=== PATIENT | male | born 1990 | race Caucasian/White ===

== ENCOUNTER 2017-08-31 02:16 | Emergency (ER) | payer MEDICARE | END 2017-08-31 03:09 | disposition home or self-care (01) | LOC: EDH 02:16 | DX: R07.89 Other chest pain (principal); Z88.1 Allergy status to other antibiotic agents; Z88.8 Allergy status to other drugs, medicaments and biological substances | CPT/HCPCS: 71045; 93005 ==

== ENCOUNTER 2019-07-15 17:21 | Emergency (ER) | payer MEDICARE, OTHER ==
[2019-07-15] MEDS ORDERED: LIDOCAINE HCL-MPF 1% 2ML VIAL ONE (18:16)
[2019-07-15] MEDS ORDERED: DEXAMETHASONE SOD PHOSPHATE 10MG/ML 1ML VIAL ONE (18:16)
[2019-07-15] MEDS ORDERED: CEFTRIAXONE SODIUM 1 GM ONE (18:17)
[2019-07-15] MEDS ORDERED: IPRATROPIUM/ALBUTEROL SULFATE 3 ML SOLUTION IH ONE (18:24)
== END 2019-07-15 19:36 | disposition home or self-care (01) ==
LOC: EDH 17:21
DX: J20.9 Acute bronchitis, unspecified (principal); I10 Essential (primary) hypertension; Z88.6 Allergy status to analgesic agent; Z88.8 Allergy status to other drugs, medicaments and biological substances; Z79.899 Other long term (current) drug therapy
CPT/HCPCS: 71046; 87804 ×2; 93005; 94640; 96372 ×2; 99285; J0696; J1100; J3490

== ENCOUNTER 2019-07-22 18:40 | Emergency (ER) | payer OTHER ==
[2019-07-22 19:29] LABS: BASOPHILS % (AUTO) 0.4 % (0.0-5.0); HEMATOCRIT 43.1 % (42-54); LYMPHOCYTES % (AUTO) 15.3 % (21.0-51.0); MEAN CORPUSCULAR HEMOGLOBIN 29.9 pg (27.0-33.0); MEAN CORPUSCULAR HGB CONC 32.7 g/dL (32.0-36.0); MEAN CORPUSCULAR VOLUME 91.3 fL (79-99); MONOCYTES % (AUTO) 7.7 % (3.0-13.0); NEUTROPHILS % (AUTO) 72.2 % (40.0-77.0); PLATELET COUNT (AUTO) 352 K/uL (130-400); RED BLOOD CELL COUNT(AUTO) 4.72 MIL/uL (4.50-6.20); RED CELL DISTRIBUTION WIDTH 11.7 % (11.0-15.5); WHITE BLOOD COUNT (AUTO) 14.6 K/uL (4.8-10.8)
[2019-07-22 19:41] LABS: CREATININE 0.9 mg/dL (0.5-1.5); POTASSIUM 4.2 mmol/L (3.5-5.1)
[2019-07-22 19:44] LABS: INR 0.92 (0.85-1.15); PROTHROMBIN TIME 9.7 SEC (9.6-11.6)
[2019-07-22 19:46] LABS: ALBUMIN 3.8 g/dL (3.5-5.0); BILIRUBIN,TOTAL 0.2 mg/dL (0.2-1.0); TOTAL PROTEIN, SERUM 7.8 g/dL (6.0-8.3)
[2019-07-22 19:55] LABS: APPEARANCE,URINE Clear (CLEAR); BILIRUBIN,URINE Negative (NEGATIVE); COLOR,URINE Yellow (YELLOW); GLUCOSE, URINE (UA) Negative (NEGATIVE); KETONES,URINE Negative (NEGATIVE); LEUKOCYTE ESTERASE ,URINE Negative (NEGATIVE); NITRATE,URINE Negative (NEGATIVE); OCCULT BLOOD,URINE Negative (NEGATIVE); PROTEIN,URINE Negative (NEGATIVE); UROBILINOGEN,URINE 0.2 mg/dL (0.2-1.0)
[2019-07-22 20:10] LABS: AMPHET/METH SCREEN,URINE NEGATIVE (NEGATIVE); BARBITURATE SCREEN, URINE NEGATIVE (NEGATIVE); BENZODIAZEPINES SCREEN,URINE NEGATIVE (NEGATIVE); CANNABINOID SCREEN,URINE NEGATIVE (NEGATIVE); COCAINE SCREEN,URINE NEGATIVE (NEGATIVE); OPIATE SCREEN,URINE NEGATIVE (NEGATIVE); PHENCYCLIDINE SCREEN,URINE NEGATIVE (NEGATIVE)
[2019-07-22] MEDS ORDERED: IOHEXOL-350 75 ML VIAL IV ONE (21:29)
[2019-07-22] MEDS ORDERED: CEFTRIAXONE SODIUM 1 GM ONE (22:37)
[2019-07-22] MEDS ORDERED: SODIUM CHLORIDE 0.9% 100 ML IV ONE (22:38)
== END 2019-07-22 23:00 | disposition home or self-care (01) ==
LOC: EDH 18:40
DX: J18.1 Lobar pneumonia, unspecified organism (principal); I10 Essential (primary) hypertension; Z88.6 Allergy status to analgesic agent
CPT/HCPCS: 36415; 71046; 71275; 80053; 80305; 81003; 85025; 85378; 85610; 85730; 96374; 99285; J0696; Q9967

== ENCOUNTER → 2023-06-02 | Outpatient (CLI) | payer OTHER, MEDICARE ==
[~2023-06-02] MED LIST: AEC81 PO; ALBU8.5H8 IH; ALPR1TAB7 PO; AMLO-258 PO; CETI10TA57 PO; DOXY-469 PO; LEVO750T21 PO; METO-391 PO; PREDNISONE PAK; PSEU120T62 PO; TRAM50TA4 PO
[2023-06-02 16:20] LABS: T4 (THYROXINE) 8.5 ug/dL (4.7-13.3)
== END | disposition home or self-care (01) ==
LOC: LAB 13:02
PROVIDERS: ATTEND Internal Medicine Cardiovascular Disease
DX: R07.89 Other chest pain (principal); I10 Essential (primary) hypertension; E78.5 Hyperlipidemia, unspecified; Z79.899 Other long term (current) drug therapy
CPT/HCPCS: 36415; 84436; 84479

== ENCOUNTER → 2023-11-03 | Outpatient (CLI) | payer OTHER, MEDICARE | END | disposition home or self-care (01) | LOC: LAB 15:08 | PROVIDERS: ATTEND Internal Medicine Cardiovascular Disease | DX: I10 Essential (primary) hypertension (principal) | CPT/HCPCS: 36415; 82533 ==

== ENCOUNTER → 2023-11-15 | Outpatient (CLI) | payer OTHER, MEDICARE ==
[2023-11-15] MEDS: REGADENOSON 0.4 MG/5 ML PF SYG IVP ONE (13:22)
== END | disposition home or self-care (01) ==
LOC: SHCH 09:39
PROVIDERS: ATTEND Internal Medicine Cardiovascular Disease
DX: R07.9 Chest pain, unspecified (principal); R06.00 Dyspnea, unspecified
CPT/HCPCS: 78452; 96374; 93017; J2785; A9500 ×2